=== PATIENT | female | born 1970 | race Hispanic/Latino ===

== ENCOUNTER 2018-01-22 13:26 | Emergency (ER) | payer MEDICAID ==
[2018-01-22 13:37] VITALS: RESP 18; TEMP 98.7; BMI 36.2
[2018-01-22 14:07] LABS: BASO # 0.03 K/mm3 (0.0-2.0); BASO % 0.3 % (0.0-3.0); EOS # 0.2 (0.0-0.7); EOS % 1.6 % (1.5-5.0); GRAN # 5.7 (1.4-6.5); HEMOGLOBIN 12.9 g/dL (12.0-16.0); LYMPH # 2.8 (1.2-3.4); LYMPH % 29.6 % (22.0-35.0); MEAN CELL VOLUME 87.8 fl (80.0-105.0); MEAN CORPUSCULAR HEMOGLOBIN 29.6 pg (25.0-35.0); MEAN CORPUSCULAR HGB CONC 33.7 g/dl (31.0-37.0); MEAN PLATELET VOLUME 10.7 fl (7.0-11.0); MONO # 0.7 (0.1-0.6); MONO % 7.5 % (1.0-6.0); RBC 4.36 10^6/uL (3.5-6.1); RED CELL DISTRIBUTION WIDTH 12.9 % (11.5-14.5); WHITE BLOOD COUNT 9.3 10^3/ul (4.5-11.0)
--- NOTE | 2018-01-22 14:13 | ED PDOC ---
Arrival/HPI - General Chief Complaint: Seizure Time Seen by Provider: 01/22/18 13:43 Historian: Patient - History of Present Illness Narrative History of Present Illness (Text): 01/22/18 13:57 47 year old female, with past medical history of seizure disorder on Keppra, presents to the Emergency department s/p an episode of seizure prior to arrival. Patient states she was at work, when she suddenly had an episode of seizure in the bathroom but does not recall losing consciousness or any head trauma. Patient denies any headache or dizziness but informs left shoulder and left hip pain secondary to fall to the floor. Patient denies any incontinence, tongue biting, fever, chills, nausea, vomiting, diarrhea, abdominal pain, chest pain, shortness of breath or any other complaints. Time/Duration: Prior to Arrival Symptom Onset: Sudden Symptom Course: Improving Quality: Aching Activities at Onset: Light Context: Work Past Medical History - Provider Review Nursing Documentation Reviewed: Yes - Infectious Disease Hx of Infectious Diseases: None - Tetanus Immunization Tetanus Immunization: Unknown - Cardiac Hx Cardiac Disorders: No - Pulmonary Hx Respiratory Disorders: No - Neurological Hx Neurological Disorder: Yes Other/Comment: epilepsy - HEENT Hx HEENT Disorder: No - Renal Hx Renal Disorder: No - Endocrine/Metabolic Hx Endocrine Disorders: No - Hematological/Oncological Hx Blood Disorders: No - Integumentary Hx Dermatological Disorder: No - Musculoskeletal/Rheumatological Hx Musculoskeletal Disorders: No - Gastrointestinal Hx Gastrointestinal Disorders: No - Genitourinary/Gynecological Hx Genitourinary Disorders: No - Psychiatric Hx Psychophysiologic Disorder: No Hx Depression: No Hx Emotional Abuse: No Hx Physical Abuse: No Hx Substance Use: No - Surgical History Hx Appendectomy: Yes Hx Section: Yes Hx Cholecystectomy: Yes Hx Tonsillectomy: Yes Hx Tubal Ligation: Yes - Anesthesia Hx Anesthesia: Yes Hx Anesthesia Reactions: No Hx Malignant Hyperthermia: No - Suicidal Assessment Feels Threatened In Home Enviroment: No Family/Social History - Physician Review Nursing Documentation Reviewed: Yes Family/Social History: No Known Family HX Smoking Status: Never Smoked Hx Alcohol Use: No Hx Substance Use: No Hx Substance Use Treatment: No Allergies/Home Meds Allergies/Adverse Reactions: Allergies No Known Allergies Allergy (Verified 12/11/14 12:41) Home Medications: Home Meds Medication Instructions Recorded Confirmed Levetiracetam [Keppra] 750 mg PO BID 04/04/12 12/11/14 Review of Systems - Physician Review All systems were reviewed & negative as marked: Yes - Review of Systems Constitutional: Normal. absent: Fevers Eyes: Normal ENT: Normal Respiratory: Normal. absent: SOB Cardiovascular: Normal. absent: Chest Pain Gastrointestinal: Normal. absent: Abdominal Pain, Diarrhea, Nausea, Vomiting Genitourinary Female: Normal Musculoskeletal: Other (left shoulder and left hip discomfort secondary to fall) Skin: Normal Neurological: Seizure. absent: Headache, Dizziness Endocrine: Normal Hemo/Lymphatic: Normal Psychiatric: Normal Physical Exam Vital Signs Reviewed: Yes Vital Signs Temp Pulse Resp BP Pulse Ox 01/22/18 16:43 98.7 F 85 18 120/75 99 01/22/18 13:36 98.7 F 87 18 126/75 97 Temperature: Afebrile Blood Pressure: Normal Pulse: Regular Respiratory Rate: Normal Appearance: Positive for: Well-Appearing, Non-Toxic, Comfortable Pain Distress: None Mental Status: Positive for: Alert and Oriented X 3 - Systems Exam Head: Present: Atraumatic, Normocephalic Pupils: Present: PERRL Extroacular Muscles: Present: EOMI Conjunctiva: Present: Normal Mouth: Present: Moist Mucous Membranes Neck: Present: Normal Range of Motion Respiratory/Chest: Present: Clear to Auscultation, Good Air Exchange. No: Respiratory Distress, Accessory Muscle Use Cardiovascular: Present: Regular Rate and Rhythm, Normal S1, S2. No: Murmurs Abdomen: No: Tenderness, Distention, Peritoneal Signs Back: Present: Normal Inspection Upper Extremity: Present: Tenderness (Tenderness to left shoulder; able to touch his right shoulder and bring hand behind his back. ). No: Cyanosis, Edema Lower Extremity: Present: Normal Inspection, Other (Able to lift left leg but pain with movement.). No: Edema Neurological: Present: GCS=15, CN II-XII Intact, Speech Normal Skin: Present: Warm, Dry, Normal Color. No: Rashes Psychiatric: Present: Alert, Oriented x 3, Normal Insight, Normal Concentration Medical Decision Making ED Course and Treatment: 01/22/18 13:43 Impression: 47 year old female presents to the Emergency department s/p seizure. Differential Diagnosis included but are not limited to: Seizure; left shoulder/ hip fracture Plan: -- Labs -- X-ray of left shoulder -- x-ray of left hip -- Reassess and disposition Prior Visits: Notes and results from previous visits were reviewed. Progress Notes: 01/22/18 15:48 X-ray of left shoulder reviewed by radiologist, shows no acute findings. X-ray of left hip reviewed by radiologist, shows no acute findings. 01/22/18 16:26 Upon reassessment, patient informs improved symptoms. Diagnostic labs and X- rays are negative. Patient is stable to be discharged home with follow-up instructions. - Lab Interpretations Microbiology Results: Microbiology Results 01/22/18 13:15 Urine Urine Culture - Final No Growth (<1,000 CFU/ML) Lab Results: 01/22/18 14:00 01/22/18 14:00 Lab Results 01/22/18 14:00: Sodium 141, Potassium 4.0, Chloride 104, Carbon Dioxide 25, Anion Gap 16, BUN 11, Creatinine 0.7, Est GFR ( Amer) > 60, Est GFR (Non- Af Amer) > 60, Random Glucose 104, Calcium 9.7, Total Bilirubin 0.6, AST 25, ALT 27, Alkaline Phosphatase 54, Total Protein 7.3, Albumin 4.2, Globulin 3.1, Albumin/Globulin Ratio 1.4 01/22/18 14:00: WBC 9.3, RBC 4.36, Hgb 12.9, Hct 38.3, MCV 87.8, MCH 29.6, MCHC 33.7, RDW 12.9, Plt Count 308, MPV 10.7, Gran % 61.0, Lymph % (Auto) 29.6, [place] % (Auto) 7.5 H, Eos % (Auto) 1.6, Baso % (Auto) 0.3, Gran # 5.70, Lymph # (Auto ) 2.8, [place] # (Auto) 0.7 H, Eos # (Auto) 0.2, Baso # (Auto) 0.03 01/22/18 13:15: Urine Color Yellow, Urine Appearance Clear, Urine pH 6.0, Ur Specific [place] <= 1.005, Urine Protein Negative, Urine Glucose (UA) Negative, Urine Ketones Negative, Urine Blood Negative, Urine Nitrate Negative, Urine Bilirubin Negative, Urine Urobilinogen 0.2, Ur Leukocyte Esterase Trace H, Urine RBC 0 - 2, Urine WBC 2 - 5, Ur Epithelial Cells 4 - 5, Urine Bacteria Few - RAD Interpretation Radiology Orders: 01/22/18 13:43 Hip Left [HIP MIN 2V W/ PELVIS LT] [RAD] Stat SHOULDER LEFT [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 All medical record entries made by the Scribe were at my direction and personally dictated by me. I have reviewed the chart and agree that the record accurately reflects my personal performance of the history, physical exam, medical decision making, and the department course for this patient. I have also personally directed, reviewed, and agree with the discharge instructions and disposition. Disposition/Present on Arrival - Present on Arrival Any Indicators Present on Arrival: No History of DVT/PE: No History of Uncontrolled Diabetes: No Urinary Catheter: No History of Decub. Ulcer: No History Surgical Site Infection Following: None - Disposition Have Diagnosis and Disposition been Completed?: Yes Diagnosis: Seizure, Contusion, hip, Contusion of shoulder, left Disposition: HOME/ ROUTINE Disposition Time: 16:43 Condition: GOOD Additional Instructions: Take tylenol or advil for pain and follow up with your pcp. Referrals: [facility] at [facility] [place] [Outside] - Follow up with primary [facility] at [facility] [Outside] - Follow up with primary [facility] [place] [Outside] - Follow up with primary Forms: [facility] (Slovak), WORK NOTE
[2018-01-22 14:19] LABS: ALB/GLOB RATIO 1.4 (1.1-1.8); ALBUMIN 4.2 g/dL (3.0-4.8); ALT/SGPT 27 U/L (7-56); AST/SGOT 25 U/L (14-36); BLOOD UREA NITROGEN 11 mg/dL (7-21); CALCIUM 9.7 mg/dL (8.4-10.5); GFR AFRICAN-AMERICAN > 60; GFR NON-AFRICAN AMERICAN > 60
--- NOTE | 2018-01-22 15:30 | RAD ---
PROCEDURE: Left Hip X-ray Radiographs. HISTORY: Trauma. Fall COMPARISON: None. FINDINGS: BONES: No acute fracture. Incidental finding(s): Accessory ossicle adjacent to the right greater trochanter. JOINTS: Normal. SOFT TISSUES: Normal. OTHER FINDINGS: None. IMPRESSION: No significant or acute findings to account for/ related to the clinical presentation. Additional benign and/or incidental findings described above.
--- NOTE | 2018-01-22 15:31 | RAD ---
PROCEDURE: Radiographs of the Left Shoulder HISTORY: fall COMPARISON: No prior. FINDINGS: BONES: Normal. No fracture. JOINTS: Normal. Glenohumeral and acromioclavicular joints preserved. No osteoarthritis. SOFT TISSUES: Normal. OTHER FINDINGS: None. IMPRESSION: Normal radiographs of the left shoulder.
[2018-01-22 15:49] LABS: URINE BILIRUBIN NEGATIVE (NEGATIVE); URINE BLOOD NEGATIVE (NEGATIVE); URINE GLUCOSE (UA) NEGATIVE (NEGATIVE); URINE LEUKOCYTE ESTERASE TRACE Leu/uL (NEGATIVE); URINE PROTEIN NEGATIVE mg/dL (<30 mg/dL); URINE UROBILINOGEN 0.2 E.U./dL (<1 E.U./dL)
[2018-01-22 15:50] LABS: URINE COLOR YELLOW (YELLOW)
[2018-01-22 15:51] LABS: URINE APPEARANCE CLEAR (CLEAR)
[2018-01-22 16:03] LABS: URINE BACTERIA FEW (NEG); URINE RBC 0 - 2 /hpf (0-2)
[2018-01-22 16:44] VITALS: BP 120/75; PULSE 85; O2SAT 99
--- NOTE | 2018-01-23 09:37 | CARD ---
APPROVED REPORT EKG Measurement Heart [id number] [id number] <Conclusion> Normal sinus rhythm with sinus arrhythmia Small q waves 2,3,F, possible IMI age unknown
== END 2018-01-22 16:43 | disposition home or self-care (01) ==
LOC: ED 13:26
DX: G40.909 Epilepsy, unspecified, not intractable, without status epilepticus (principal); S40.012A Contusion of left shoulder, initial encounter; S70.02XA Contusion of left hip, initial encounter; W18.39XA Other fall on same level, initial encounter; Y92.89 Other specified places as the place of occurrence of the external cause; Y99.8 Other external cause status